=== PATIENT | male | born 1975 | race Caucasian/White ===

== ENCOUNTER 2017-04-02 19:26 | Emergency (ER) | payer OTHER ==
[~2017-04-02] VITALS: Ht 188 cm; Wt 104.5 kg
[2017-04-02 19:36] VITALS: BP 129/83; PULSE 68; RESP 20; O2SAT 97
--- NOTE | 2017-04-02 21:53 | ED.REPORT ---
HPI-General Illness Date of Service Apr 02, 2017 ED Provider: Anton Rico MD The pt is a 41 y/o male with a hx of heroin use (on Suboxone) who presents to the ED for a Suboxone prescription after he relapsed today. He had not used in over three years. There are no other complaints at this time Nursing Notes Stated Complaint: DETOX Chief Complaint: Substance Abuse Nursing Notes Reviewed: Yes Allergies: Coded Allergies: No Known Allergies (Unverified Allergy, Unknown, 04/02/17) Scheduled Buprenorphine HCl/Naloxone HCl (Suboxone 8 mg-2 mg Sl Film) 1 Each Film 1 EACH SL DAILY General Time Seen by MD: 21:51 Chief Complaint Other (heroin use - requesting suboxone prescription) Hx Obtained From: Patient Arrived By: Walk-in Sudden in Onset?: Yes Onset Occurred: 5 - 8 hours ago Symptom Duration: Since onset Severity: Current: No pain currently Severity: Maximum: No pain Recent Healthcare: No recent doctor visit Past Medical History Past Medical History hx of heroin use (on Suboxone for 3 years) Past Surgical History right knee Social History On suboxone for 3 years Ambulatory Status Independent Review of Systems Reports: heroin use earlier today, no specific complaints Complete sys rev & neg: except as marked. Physical Exam Vital Signs Vital Signs Date Time Temp Pulse Resp B/P Pulse Ox O2 Delivery O2 Flow Rate FiO2 04/02/17 19:36 36.7 68 20 129/83 97 Room Air Initial VS: Reviewed, Vital signs normal Head / Eyes: Atraumatic, Normocephalic, PERRL Neck: Supple, Non-tender, Full range of motion Respiratory: No respiratory distress Abdomen / GI: No guarding, No rebound, No distention Extremities: Vascular intact, Neuro intact, No swelling, No tenderness Skin: Warm, Dry, No cyanosis Neurologic: Alert, Oriented, Nonfocal General/Constitutional: Awake, Alert, No acute distress, Well appearing, Cooperative Re-Eval/Medical Decision Med Decision/Clinical Course 41-year-old male well-known to me. He has had 3 years of sobriety now, and a recent short relapse on smoked heroin. He was given a prescription for a 7 day taper with Suboxone. He will follow up with me had [facility] as needed if he desires to be on maintenance therapy. Time of Eval: 21:55 Re-Evaluation/Progress Note: Rechecked pt. Discussed diagnosis and plan to discharge. Pt understands and agrees with the plan. F/U instruction and RTER warning given. All questions addressed. Counseled Regarding: Diagnosis, Need for follow-up, When/why to return to ED Discharge & Departure Primary Impression: Opioid dependence with withdrawal Disposition: Home Discharge Condition All VS Reviewed: Yes Condition: Stable Patient Instructions: Buprenorphine/Naloxone (Into the mouth) Additional Instructions: Wait a full 24 hours from your last heroin use. Suboxone 8/2 tabs or [employer], one sublingual daily for 3 days and then one half sublingual daily for 4 days, # 5 prescribed. Follow up at [facility] as needed if you decide to get back on maintenance therapy. Referrals: [facility] (PCP) Scribe Attestation Portions of this note were transcribed by Davion Warner. I,, personally performed the history,physical exam and medical decision-making;I reviewed and confirmed the accuracy of the information in the transcribed note. Signed by Joyce Jaimes. 04/02/17 Anton Rico MD Apr 02, 2017 21:53 Davion Warner Apr 02, 2017 21:56
[2017-04-02] MEDS ORDERED: BUPR1FIL3 SL (21:59)
== END 2017-04-02 22:06 | disposition home or self-care (01) ==
LOC: SED 19:26
DX: F11.23 Opioid dependence with withdrawal (principal)